=== PATIENT | female | born 1960 | race Two or more races ===

== ENCOUNTER 2021-02-07 17:35 | Emergency (ER) | payer OTHER ==
[~2021-02-07] VITALS: Ht 152.4 cm; Wt 63.6 kg
[2021-02-07 17:37] VITALS: BP 199/70
[2021-02-07] MEDS ORDERED: HYDR-3965 PO (19:17)
[2021-02-07] MEDS ORDERED: ONDA4TAB6 PO (19:17)
== END 2021-02-07 19:45 | disposition home or self-care (01) ==
LOC: ER 17:36
DX: S92.424A Nondisplaced fracture of distal phalanx of right great toe, initial encounter for closed fracture (principal); Z79.899 Other long term (current) drug therapy; W22.8XXA Striking against or struck by other objects, initial encounter; Y93.01 Activity, walking, marching and hiking; Y92.89 Other specified places as the place of occurrence of the external cause; Y99.8 Other external cause status
CPT/HCPCS: 73630; 99283

== ENCOUNTER 2021-12-26 20:12 | Emergency (ER) | payer OTHER ==
[~2021-12-26] VITALS: Ht 152.4 cm; Wt 77.8 kg
[~2021-12-26 20:12] MED LIST: ONDA4TAB6 PO
[2021-12-26] MEDS ORDERED: ibuprofen 200mg tablet PO ONE (21:15)
[2021-12-27 00:26] VITALS: BP 155/75
== END 2021-12-27 00:29 | disposition home or self-care (01) ==
LOC: ER 20:13
DX: S06.0X0A Concussion without loss of consciousness, initial encounter (principal); R51.9 Headache, unspecified; Z79.899 Other long term (current) drug therapy; W19.XXXA Unspecified fall, initial encounter; Y93.89 Activity, other specified; Y92.89 Other specified places as the place of occurrence of the external cause; Y99.8 Other external cause status
CPT/HCPCS: 70450; 72125; 99284; L0172